=== PATIENT | female | born 1945 | race Caucasian/White ===

== ENCOUNTER 2018-08-11 02:24 | Emergency (ER) | payer MEDICARE, BC ==
[~2018-08-11] VITALS: Ht 152.4 cm; Wt 58.1 kg
[2018-08-11 02:29] VITALS: BP 138/67
[2018-08-11] MEDS ORDERED: SUBLIMAZE IV STA ×2 (02:32→06:16)
[2018-08-11] MEDS ORDERED: ZOFRAN IV STA (02:32)
[2018-08-11] MEDS ORDERED: BENTYL IM STA (02:32)
[2018-08-11] MEDS ORDERED: PEPCID IV STA (02:32)
--- NOTE | 2018-08-11 02:40 | ER.PDOC ---
General Chief Complaint: Abdomen Pain Stated Complaint: ABDOMINAL PAIN Time seen by MD: 02:29 Source: patient Exam Limitations: no limitations History of Present Illness Initial Comments epigast and RUQ pain. Hard cramping. Rad to back. Nausea. No bowel or urine c/o. No abdom surgeries. Similar 2 nites ago with vomiting. None prior. Timing/Duration: 4-6 hours Severity/Quality: moderate Radiation: no radiation, back Associated Symptoms: denies symptoms Exacerbated by: nothing Relieved By: nothing Allergies: Coded Allergies: No Known Allergies (Unverified , 08/11/18) Vital Signs First Vital Signs Date Time Temp Pulse Resp B/P (MAP) Pulse Ox O2 Delivery O2 Flow Rate FiO2 08/11/18 02:25 98.2 71 24 98.2 08/11/18 02:25 100 Room Air 08/11/18 02:29 138/67 (90) Last Vital Signs Date Time Temp Pulse Resp B/P (MAP) Pulse Ox O2 Delivery O2 Flow Rate FiO2 08/11/18 02:29 98.2 71 24 138/67 (90) 100 Room Air 98.2 Past Medical History Medical History: high cholesterol Surgical History: tonsillectomy, tubal LMP (females 10-50): postmenopause Social History Smoking: non-smoker Alcohol Use: none Drug Use: none Constitutional: no symptoms reported EENTM: no symptoms reported Respiratory: no symptoms reported Cardiovascular: no symptoms reported Gastrointestinal: see HPI Genitourinary: no symptoms reported Musculoskeletal: no symptoms reported Skin: no symptoms reported Psychiatric/Neurological: no symptoms reported All Other Systems: Reviewed and Negative Physical Exam General Appearance: Anxious, Moderate Distress, Thin HEENT: PERRL/EOMI, Normal ENT Inspection Neck: Non-Tender, Full Range of Motion, Normal Inspection Respiratory: chest non-tender, lungs clear, normal breath sounds Cardiovascular: Normal Peripheral Pulses, Regular Rate, Rhythm, No Edema Gastrointestinal: No Organomegaly, No Pulsatile Mass, Hypoactive bowel sounds, Guarding (RUQ and epigast. No mass or rebound. 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 Lipase nml. Pain had improved, now returning on re- eval at 0615. US GB no evidence of cholecystitis. Will order CT ab. Further care transferred to Dr. Gonsalez at 0700. Pain free, CT normal Course Sepsis Screening Results: Posi: POSITIVE SEPSIS RISK Vitals & review Data Vital Sign - Last 24 Hours 08/11/18 08/11/18 08/11/18 02:25 02:25 02:29 Temp 98.2 98.4 98.2 98.2 98.4 98.2 Pulse 71 66 71 Resp 24 24 24 B/P (MAP) 138/67 (90) Pulse Ox 100 100 O2 Delivery Room Air Room Air Departure Time of Disposition: 07:36 Disposition: 01 HOME, SELF-CARE Impression: Primary Impression: Abdominal pain Additional Impression: Biliary dyskinesia Condition: Stable Patient Instructions: Abdominal Pain Referrals: CAT MOORE (PCP) PRIMARY CARE PROVIDER Duration or Time Spent with Pa: 15 Problem Qualifiers ROLO CURTIS DO Aug 11, 2018 02:40 CARISSA GONSALEZ MD Aug 11, 2018 07:37
[2018-08-11] MEDS ORDERED: ZOFRAN ONE (02:47)
[2018-08-11] MEDS ORDERED: BENTYL IM ONE ×2 (02:47→02:56)
[2018-08-11] MEDS ORDERED: SUBLIMAZE ONE ×2 (02:48→06:22)
--- NOTE | 2018-08-11 02:48 | NUR ---
ULTRASOUND [facility], NOTIFIED OF NEW ORDERS. AWAIT ARRIVAL
[2018-08-11 02:52] LABS: BASOPHIL % 0.2 % (0.0-0.2); EOSINOPHIL # 0.1 10^3/uL (0.0-0.2); EOSINOPHIL % 1.3 % (0.0-5.0); HEMOGLOBIN 13.1 g/dL (12.0-15.0); LYMPHOCYTES # 1.4 10^3/uL (1.0-4.8); LYMPHOCYTES % 15.8 % (24.0-44.0); MEAN CELL HGB 30.1 pg (26-34); MEAN CELL HGB CONCENTRATION 33.6 g/dL (33-37); MEAN CORP VOLUME 89.7 fL (78-100); MEAN PLATELET VOLUME 11.7 fL (7.8-11.0); MONOCYTES # 0.7 10^3/uL (0.3-0.8); MONOCYTES % 8.2 % (5.0-12.0); NEUTROPHIL # 6.7 10^3/uL (1.8-7.7); NEUTROPHILS % 74.1 % (41.0-85.0); RED CELL DISTRIBUTION WIDTH 12.7 % (11.5-14.5)
[2018-08-11 03:07] LABS: CALCIUM 8.5 mg/dL (8.4-10.5); CARBON DIOXIDE 24.2 mmol/L (20.0-32)
--- NOTE | 2018-08-11 03:10 | NUR ---
US PULIDO AT BEDSIDE TO TRANSPORT PATIENT TO DEPARTMENT FOR ORDERED ULTRASOUND OF THE GB.
[2018-08-11 03:30] VITALS: BP 124/71
[2018-08-11] MEDS ORDERED: NS 1000ML 2,000 ML IV ONE (04:00)
[2018-08-11 04:30] VITALS: BP 118/64
--- NOTE | 2018-08-11 04:52 | DIREP ---
PROCEDURE:US ABDOMEN LIMITED (SINGLE ORGAN - QUAD) COMPARISON:None. INDICATIONS:RUQ pain, n/v 4 DAYS PRIOR TECHNIQUE:High resolution sonographic examination was performed of the abdomen. FINDINGS: RIGHT KIDNEY:9.42 cm x 3.86 cm x 4.24 cm, 80.75 ml GALL BLADDER WALL:2.49 mm CBD:2.56 mm PANCREAS:Normal. LIVER:Normal size and echogenicity. No significant masses. BILIARY:No pericholecystic fluid or wall thickening. Sludge reported, no gallstones detected. RIGHT KIDNEY:Right renal cyst 1.5 x 1.5 x 1.7 cm. OTHER:Negative. CONCLUSION:Gallbladder sludge. No dilated bile ducts. No gallstones Dictated by: Floyd Gallo MD on 08/11/2018 at 04:49 AM
[2018-08-11 05:30] VITALS: BP 123/58
[2018-08-11 05:44] LABS: BILIRUBIN,URINE NEGATIVE (NEGATIVE); UROBILINOGEN,URINE NORMAL (NEGATIVE)
[2018-08-11 05:46] LABS: APPEARANCE,URINE CLEAR (CLEAR); UA COLOR YELLOW (YELLOW)
[2018-08-11] MEDS ORDERED: REGLAN IV STA (06:16)
--- NOTE | 2018-08-11 07:27 | DIREP ---
PROCEDURE:CT ABDOMEN/PELVIS W/ CONTRAST COMPARISON:[facility], US, US ABDOMEN LIMITED(SINGLE ORGAN-QUAD), 08/11/2018, 03:43 AM. INDICATIONS:RUQ pain TECHNIQUE:Axial images were created through the abdomen and pelvis with non-ionic intravenous contrast material. No oral contrast was administered. Sagittal and coronal reconstructions were performed from source images. FINDINGS: LUNG BASES:Normal. No visible pulmonary or pleural disease. LIVER:Normal. No significant liver lesions are identified. BILIARY:Tiny amount of pericholecystic fluid. Gallbladder wall thickening not detected. The common duct is not dilated however there is a punctate calcification at the most distal end of the duct with its junction with the duodenum . This could represent a distal common duct stone . ( series 2/image 33) PANCREAS:Normal. No lesion, fluid collection, ductal dilatation, or atrophy. SPLEEN:Normal. No enlargement or focal lesion. ADRENALS:Normal. No mass or enlargement. URINARY TRACT:Normal. No focal lesions or hydronephrosis. AORTA/VASCULAR:Normal. No aneurysm. RETROPERITONEUM:Normal. No mass or adenopathy. BOWEL/MESENTERY:Normal. There is no intestinal obstruction, free fluid, free air or mesenteric inflammatory changes. Normal appendix right lower quadrant ABDOMINAL WALL:Normal. No mass or hernia. PELVIC ORGANS:Normal. No visible mass. Pelvic organs appropriate for patient age. BONES:Normal for age. No bony lesion or acute fracture. OTHER:Negative. CONCLUSION:Punctate calcification at the distal end of the nondilated common duct could represent early or partially obstructing stone. The subtle pericholecystic fluid at the gallbladder. No gallstones detected by CT within the gallbladder. Dictated by: Floyd Gallo MD on 08/11/2018 at 06:56 AM
[2018-08-11 07:32] VITALS: BP 95/54
[2018-08-11 08:05] VITALS: BP 95/54
== END 2018-08-11 07:42 | disposition home or self-care (01) ==
LOC: ER 02:24 → EDBD 02:24 → ER 07:42
DX: K82.8 Other specified diseases of gallbladder (principal); R10.13 Epigastric pain; E78.00 Pure hypercholesterolemia, unspecified; Z90.89 Acquired absence of other organs; Z98.51 Tubal ligation status
CPT/HCPCS: 36415; 36600; 74177; 76705; 80053; 81002; 83605 ×2; 83690; 85025; 96374; 96375; 99285; J2405; J3010 ×2; Q9965; 96361; J2765; J0500